=== PATIENT | male | born 2000 | race African-American/Black ===

== ENCOUNTER 2018-10-29 06:47 | Emergency (ER) | payer OTHER ==
[~2018-10-29] VITALS: Ht 180.3 cm; Wt 61.2 kg
[2018-10-29] MEDS ORDERED: ANUSOL-HC30 GM TOP (07:24)
[2018-10-29 07:33] VITALS: BP 108/55
== END 2018-10-29 07:30 | disposition home or self-care (01) ==
LOC: ER 06:47
DX: K64.9 Unspecified hemorrhoids (principal)